=== PATIENT | female | born 1965 | race Caucasian/White ===

== ENCOUNTER 2017-01-21 08:30 | Outpatient (CLI) | payer BC | END 2017-01-21 19:48 | disposition home or self-care (01) | LOC: SMA 08:30 | PROVIDERS: ATTEND Obstetrics & Gynecology | DX: Z12.31 Encounter for screening mammogram for malignant neoplasm of breast (principal) | CPT/HCPCS: 77067; G0202 ==

== ENCOUNTER 2017-04-21 07:43 | Outpatient (CLI) | payer BC | END 2017-04-21 19:09 | disposition home or self-care (01) | LOC: SNM 07:43 | PROVIDERS: ATTEND Internal Medicine | DX: R10.12 Left upper quadrant pain (principal) | CPT/HCPCS: 78264; A9541 ==

== ENCOUNTER 2020-08-22 08:14 | Outpatient (CLI) | payer BC | END 2020-08-22 20:57 | disposition home or self-care (01) | LOC: SMA 08:14 | PROVIDERS: ATTEND Internal Medicine | DX: N63.21 Unspecified lump in the left breast, upper outer quadrant (principal); R92.2 Inconclusive mammogram | CPT/HCPCS: 76641; 77066 ==